=== PATIENT | male | born 1960 | race Two or more races ===

== ENCOUNTER 2024-09-25 11:42 | Emergency (ER) | payer MEDICARE, SELFPAY ==
--- NOTE | 2024-09-25 12:33 | PD.EDSKIN ---
ED Skin Abcess FB-RME/HPI General Chief complaint: Skin/Abscess/Foreign Body Stated complaint: lump to right neck, growing/painful x 1 month Time Seen by Provider: 09/25/24 12:24 Arrival date/time: 09/25/24 11:42 RME / HPI RME / HPI narrative: 63-year-old male patient came in for evaluation regarding worsening redness and swelling right lateral neck. Patient's been having small swelling that is getting worse for the last 3 months. Today patient noticed some redness, and tenderness, no fever no other complaints noted. Patient seen by PCP and waiting for the ultrasound. Related Data Home Medications ?Medication ?Instructions ?Recorded ?Confirmed hydrochlorothiazide 25 mg tablet 25 tab PO QDAY PRO ##30 11/06/13 lisinopril 20 mg tablet 20 tab PO QDAY HBP ##30 11/06/13 Previous Rx's ?Medication ?Instructions ?Recorded clindamycin HCl 300 mg capsule 300 mg PO TID #30 caps 09/25/24 ibuprofen 800 mg tablet 800 mg PO Q8H PRN pain #30 tabs 09/25/24 Allergies Allergy/AdvReac Type Severity Reaction Status Date / Time NKA* Allergy Uncoded 09/25/24 11:44 Review of Systems Review of Systems Narrative Review of Systems: Review of system reviewed and within normal limits except mentioned in HPI ED Exam Narrative Physical exam: VITAL SIGNS: Reviewed. GENERAL APPEARANCE: Alert and interactive, follows commands, no acute distress, HEAD AND FACE: Non-traumatic. ENT: PERRL, pink conjunctivitis, eyelid no trauma, Mucous membrane moist. NECK: Supple, 3 x 3 cm redness, swelling, right lateral neck, fluctuant with tenderness CHEST: No tenderness, no crepitus, no paradoxical movement, no retractions. LUNGS: Clear, well ventilated, symmetric, no rales, no wheezing, no ronchi, no stridor, good breath sounds bilaterally. HEART: Regular rate, regular rhythm, no murmur, no gallops. ABDOMEN: Soft, positive bowel sounds, nondistended, no guarding, nontender, no rebound, no masses, RECTAL: Deferred. GENITAL: Deferred. NEUROLOGICAL: Gross motor function intact sensory function intact, Appropriate for age. MUSCULOSKELETAL: low back nontender, full range of motion. EXTREMITIES: Nontender, full range of motion. SKIN: Color pink, dry, no rash, no lacerations, no abrasions, no contusions. LYMPHATICS: Deferred. Course Quality Measures none Orders Category Date Time Status Clindamycin [Cleocin] Med 09/25/24 12:32 Discontinued 300 mg PO X1 ONE Ibuprofen Tab [Motrin Tab] Med 09/25/24 12:32 Discontinued 800 mg PO X1 ONE Lidocaine 1% 20 ml [Xylocaine 1% 20 ML] Med 09/25/24 13:00 Discontinued 10 ml INFL X1 ONE Lidocaine 1% Pf 5 ml [Xylocaine 1% Pf 5 ml] Med 09/25/24 12:32 Discontinued 10 ml INFL X1 ONE Vital Signs Vital signs: Vital Signs Temperature 98.2 F 09/25/24 12:35 Pulse Rate 85 09/25/24 12:35 Respiratory Rate 17 09/25/24 12:35 Blood Pressure 162/82 H 09/25/24 12:35 Pulse Oximetry (%) 96 09/25/24 12:35 Oxygen Delivery Method Room Air 09/25/24 12:35 Procedures -ED Abscess I/D Site: neck (Right lateral neck) Sedation/analgesia: none Local Anesthetic: lidocaine 1% Amount of anesthesia used (mL): 5 Technique: incised with #11 blade Amount of fluid expressed (mL): 10 Irrigation: Yes Packing used?: plain Complications: pain Skin / Abscess / Foreign Body MDM Narrative MDM Narrative:: 63-year-old male patient came in for evaluation regarding worsening redness and swelling right lateral neck. Patient's been having small swelling that is getting worse for the last 3 months. Today patient noticed some redness, and tenderness, no fever no other complaints noted. Patient seen by PCP and waiting for the ultrasound. Incision and drainage was done by me, see procedure notes. Patient tolerated the procedure well. Patient received clindamycin in the emergency room. Patient was advised to closely follow-up with PCP. Patient appears nontoxic and hemodynamically stable. Patient discharged home and instructed to follow-up with primary care provider in 24 to 48 hours. Instructed to return to the emergency department immediately if worsening of symptoms Patient data External records reviewed:: None Clinical information provided by:: patient and family Social determinants that could affect healthcare access:: none Patient has the following chronic illnesses:: Hypertension How is presenting disease/condition affected by chronic disease/condition?: uneffected by Evaluation data The following diagnostics were reviewed and interpreted by me:: other (specify) Lab and/or radiology exams considered but not ordered:: None Interpretation Summary: None Medications / Prescriptions Medications or Prescriptions considered but not ordered:: None Medication administrations:: Medication Administration History Discontinued Medications Clindamycin HCl (Clindamycin 150 Mg Capsule) 300 mg PO X1 ONE Stop: 09/25/24 12:33 Ibuprofen (Ibuprofen Tab 400 Mg Tablet) 800 mg PO X1 ONE Stop: 09/25/24 12:33 Lidocaine HCl (Lidocaine Inj Pf 1% 5 Ml Vial) 10 ml INFL X1 ONE Stop: 09/25/24 12:33 Lidocaine HCl (Lidocaine Hcl 1% 20 Ml Vial) 10 ml INFL X1 ONE Stop: 09/25/24 13:01 Clindamycin Motrin Consultations Consultation(s) initiated? (list below): No Diagnosis Skin/Abscess Differential Diagnosis: abscess of skin or subcutaneous tissue, insect bites and impetigo Most likely diagnosis given after review of the tests above:: Infected sebaceous cyst Admission Indicated Admission indicated?: not indicated Explain why admission is indicated or not indicated:: Stable Admission Request Was there a request for admission?: No Disposition Plan Disposition Plan: Discharge Discharge Attestation Discharge Attestation: The patient and all family members were given an opportunity to ask questions and understood the discharge instructions. Discharge instructions specifically effects, indications for sooner follow up or return to the emergency department, and the expected course of current diagnosis. Patient condition: Stable Discharge Plan Plan Patient Disposition: HOME (Self Care) Disposition Comment: Stable Prescriptions/Referrals Prescriptions/Med Rec: New clindamycin HCl 300 mg capsule 300 mg PO TID Qty: 30 0RF ibuprofen 800 mg tablet 800 mg PO Q8H PRN (Reason: pain) Qty: 30 0RF No Action lisinopril 20 MG tablet 20 tab PO QDAY Qty: 30 hydrochlorothiazide 25 MG tablet 25 tab PO QDAY Qty: 30 Problem List Clinical Impression: Infected sebaceous cyst Patient/Caregiver Discharge Instructions Discharge Activity: activity as tolerated Education Materials: Epidermoid Cyst Infect Antibiotics Additional Instructions: Thank you for the opportunity for serving you today. You are stable for discharged . You are advised to: Follow-up with your PCP in 1 to 2 days Return to ED for worsening of symptoms Increase oral fluids Take medication as prescribed Pull out 1 to 2 cm every day for the next 5 days Change outer dressing only Print Language: Mosotho Stand Alone Forms: [facility] Info., Patient Portal Info Letter PA/IMPORT CUST[employer]S CLEARING AGENT Supervising Physician PA/IMPORT C[employer] CLEARING AGENT Supervising Physician: MD Sherrie
[2024-09-25 12:35] VITALS: BP 162/82; PULSE 85; RESP 17; TEMP 36.8; O2SAT 96
== END 2024-09-25 15:20 | disposition home or self-care (01) ==
LOC: SERX 14:35
PROVIDERS: Emergency Provider Emergency Medicine; PCP Family Medicine
DX: L72.3 Sebaceous cyst (principal)
CPT/HCPCS: 10060; 99283

== ENCOUNTER → 2025-02-25 | Outpatient (CLI) | payer MEDICARE, SELFPAY ==
--- NOTE | 2025-02-25 11:21 | XR_ITS ---
Examination: CT soft tissue neck, with intravenous contrast. CT soft tissue neck without intravenous contrast 2-D coronal reconstructions. 2-D sagittal reconstructions. Date and time of exam :February 25, 2025 1151 hours INDICATIONS: Right-sided neck lump noticed August 2024. CTDI: vol (mGy):34 DLP: (mGycm):1075 Technique: 1.25 mm axial sections of the neck of the obtained, pre and post intravenous administration 50 cc Isovue-370. Coronal and sagittal reconstructions have been obtained. Low dose protocols were performed. One or more of the following dose reduction techniques were used; automated exposure control, adjustment of the mA and/or KV according to patient size, use of iterative reconstruction technique. Findings: Symmetrical optic globes Maxillary antra are clear Symmetrical nasopharynx oropharynx Symmetrical submandibular glands Small lymph nodes lateral to the right carotid artery and internal jugular vein, the largest 8 mm Thyroid lobes are not enlarged Normal epiglottis The larynx appears normal IMPRESSION: Small lymph nodes lateral to the right carotid triangle, the largest 8 mm Recommend ultrasound soft tissue follow-up at the area concern right neck
== END | disposition home or self-care (01) ==
PROVIDERS: Referring Provider Nurse Practitioner Family; Visit Provider Nurse Practitioner Family
DX: R22.1 Localized swelling, mass and lump, neck (principal)
CPT/HCPCS: 70492; A4649; Q9967

== ENCOUNTER 2025-04-29 08:35 | Day surgery (SDC) | payer MEDICARE, SELFPAY ==
--- NOTE | 2025-04-25 07:03 | EKG_ITS ---
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
[2025-04-25 10:33] VITALS: BMI 32.3
[2025-04-25 11:02] LABS: Basophils # (Auto) 0.0 Thou/mm3 (0.0-0.2); Basophils % (Auto) 0 % (0-2.5); Eosinophils # (Auto) 0.1 Thou/mm3 (0.0-0.5); Eosinophils % (Auto) 2 % (0-10); Hematocrit 43.0 % (41.0-53.0); Hemoglobin 14.9 g/dL (13.5-16.0); Immature Granulocytes Auto 0.02 Thou/mm3 (0.00-0.00); Lymphocytes # (Auto) 2.5 Thou/mm3 (1.0-4.8); Lymphocytes % (Auto) 38 % (10-50); Mean Corpuscular HGB Conc 34.7 g/dl (31.0-37.0); Mean Corpuscular Hemoglobin 31.4 pg (25.0-35.0); Mean Corpuscular Volume 91 fL (80-100); Monocytes # (Auto) 0.4 Thou/mm3 (0.0-0.8); Monocytes % (Auto) 6 % (0-12); Neutrophils # (Auto) 3.4 Thou/mm3 (1.8-7.7); Neutrophils % (Auto) 53 % (37-80); Nucleated Red Blood Cell # 0.00 Thou/mm3 (0.00-0.00); Nucleated Red Blood Cell % 0 /100 WBC (0); Platelet Count 168 Thou/mm3 (140-440); RDW Standard Deviation 39.6 fL (35.1-43.9); Red Blood Count 4.75 Miln/mm3 (4.50-5.90); White Blood Count 6.4 Thou/mm3 (3.8-10.6)
[2025-04-25 11:23] LABS: Alanine Aminotransferase 27 U/L (10-49); Albumin, Serum 4.4 gm/dL (3.4-4.8); Albumin/Globulin Ratio 1.8 (1.2-2.2); Alkaline Phosphatase 68 U/L (46-116); Anion Gap 11 (7-16); Aspartate Amino Transferase 24 U/L (0-34); BUN/Creatinine Ratio 17 Ratio (12-20); Bilirubin,Total 0.9 mg/dL (0.3-1.2); Blood Urea Nitrogen 15 mg/dL (9-23); Calcium 9.8 mg/dL (8.3-10.6); Calcium (Corrected) 9.8 mg/dL (8.5-10.1); Carbon Dioxide 27.2 mMol/L (20.0-31.0); Chloride 106 mMol/L (98-107); Creatinine (Component) 0.9 mg/dL (0.6-1.3); Estimated Creatinine Clearance 82.5 mL/min (>60); Globulin 2.4 gm/dL (2.3-3.5); Glucose 104 mg/dL (74-106); Osmolality,Calculated 287 (275-295); Potassium 3.8 mMol/L (3.4-5.1); Sodium 144 mMol/L (136-145); Total Protein 6.8 gm/dL (5.7-8.2); eGFR > 60 See Note
[2025-04-29 09:05] VITALS: BP 144/88; PULSE 75; RESP 14; TEMP 37; O2SAT 95; BMI 32.3
[2025-04-29] MEDS: RINGERS LACTATED 1000 ML 1,000 ML 20 ML IV (09:15)
[2025-04-29 09:55] VITALS: BP 113/55; PULSE 61; RESP 15; TEMP 36.2; O2SAT 97
--- NOTE | 2025-04-29 09:55 | SUR.PHASEII ---
0955: Pt. wakes to name then drifts back to sleep, vitals stable, breathing unlabored, no complaint fo pain or nausea, dressing to right side of neck CDI, no active bleed noted, report received from Jose J THORNE and Giovanna RAMIREZ.
--- NOTE | 2025-04-29 09:58 | PD.SUROPNT ---
Date of Procedure 04/29/25 Pre Op Diagnosis Right neck soft tissue mass Post Op Diagnosis Right neck subcutaneous soft tissue mass Procedure Excision of subcutaneous soft tissue mass from right neck Findings Approximately 3.5 cm subcutaneous soft tissue mass on right neck Procedure Description Patient brought into the operating room in supine position. After administration of monitored anesthesia care, patient's right neck was prepped and draped in standard surgical manner. Patient's neck was extended to the left. After administration of local anesthesia an approximately 4 cm elliptical incision was made and dissection was deepened into soft tissue. Underlying subcutaneous soft tissue mass was circumferentially dissected off surrounding tissue and underlying platysma. The wound was washed and irrigated and hemostasis achieved using electrocautery. Subcutaneous tissue closed with interrupted sutures using 2-0 Vicryl and the incision was closed with 4-0 Monocryl in subcuticular fashion. Dermabond and sterile dressings applied. Patient tolerated the procedure well. He was breathing spontaneously without difficulty and was transferred to postanesthesia care in stable condition. Instruments, needles and sponge counts were reported to be correct x 2. Anesthesia MAC and local Pathology / specimen Other (Right neck mass) Estimated Blood Loss 2 Condition Stable Disposition PACU Surgeon Iris Blandon MD Surgical Staff Operation Date: 04/29/25 10:30 Case Staff SUPERINTENDENT JOB: Jose J Ferreira
[2025-04-29 10:00] VITALS: BP 112/57; PULSE 60; RESP 16; TEMP 36.2; O2SAT 96
[2025-04-29 10:05] VITALS: BP 103/56; PULSE 61; RESP 18; TEMP 36.3; O2SAT 92
[2025-04-29 10:10] VITALS: BP 113/65; PULSE 66; RESP 20; TEMP 36.4; O2SAT 93
[2025-04-29 10:25] VITALS: BP 117/70; PULSE 58; RESP 20; TEMP 36.5; O2SAT 94
--- NOTE | 2025-04-29 10:35 | SUR.PHASEII ---
1035: Pt. AAOx4, vitals stable, breathing unlabored, no complaint of pain or nausea, dressing to right neck CDI, no active bleed noted, pt. tolerated sips of juice well, pt. ambulated to wheelchair with steady gait and no assist, no complications. Gave discharge instructions to the pt. and his ride using a silk folder, both verbalized understanding and had no further questions. Pt. left with all personal belongings.
== END 2025-04-29 10:35 | disposition home or self-care (01) ==
PROVIDERS: Anesthesiology; PCP Family Medicine; Referring Provider Surgery; Visit Provider Surgery
PROC: (CPT 21555; principal; 2025-04-29 10:15)
DX: L72.3 Sebaceous cyst (principal); Z01.810 Encounter for preprocedural cardiovascular examination; N40.0 Benign prostatic hyperplasia without lower urinary tract symptoms; I10 Essential (primary) hypertension
CPT/HCPCS: 21555; 36415; 80053; 85025; 93005; A4217; A4649; J0131; J0690; J1885; J2250; J2704; J3010; J3490; J7120